=== PATIENT | male | born 1940 | race Caucasian/White ===

== ENCOUNTER 2016-10-30 09:43 | Outpatient (CLI) | payer MEDICARE | END 2016-10-30 09:44 | disposition home or self-care (01) | DX: R07.9 Chest pain, unspecified (principal) | CPT/HCPCS: 78452; 93017; A9500 ==

== ENCOUNTER 2016-12-28 09:42 | Day surgery (SDC) | payer MEDICARE ==
[2016-12-28] MEDS ORDERED: LACTATED RINGERS 1,000 ML IV ONE (10:00)
--- NOTE | 2016-12-28 10:16 | HISTORY & PHYSICAL EXAMINATION ---
HPI - History of Present Illness HPI Comment/Other: Visit Type: Follow-up Referring Provider: Dr. Street History of Present Illness: Patient is here for colonoscopy for history of colonic polyps Physical Exam General: well developed, well nourished, in no acute distress Lungs: clear bilaterally to A & P Heart: regular rate and rhythm, S1, S2 without murmurs, rubs, gallops, or clicks Abdomen: bowel sounds positive; abdomen soft and non-tender without masses, organomegaly, or hernias noted Pulses: pulses normal in all 4 extremities Extremities: no clubbing, cyanosis, edema, or deformity noted with normal full range of motion of all joints Cervical Nodes: no significant adenopathy Psych: alert and cooperative; normal mood and affect; normal attention span and concentration Medications were reviewed with the patient during this visit. Allergies were reviewed with the patient during this visit. Allergies: PENICILLIN V POTASSIUM (Critical) SULFA (Critical) Impression & Recommendations: Problem # 1: colon polyps Will proceed with colonoscopy PMH/PSH - Past Medical History Cardiovascular: positive: High cholesterol Respiratory: positive: None Endocrine/Autoimmune: positive: None GI: positive: Colon polyps : positive: None HEENT: positive: Chronic hearing loss, Other Psych: positive: None Musculoskeletal: positive: Osteoarthritis Derm: positive: None MRSA Hx?: No - Past Surgical History General: positive: Colonoscopy HEENT: positive: Tonsil/Adenoidectomy Social & Family Hx - Social History ETOH Use: Liquor Meds/Allgy - Home Medications Home Medications: Ambulatory Orders Medication Instructions Recorded Confirmed Simvastatin 1 tab PO DAILY 12/10/14 12/28/16 Aspirin [Aspirin EC] 81 mg PO DAILY 12/26/16 12/28/16 - Allergies Allergies/Adverse Reactions: Allergies Allergy/AdvReac Type Severity Reaction Status Date / Time Penicillins Allergy Respiratory Verified 12/10/14 06:54 Sulfa (Sulfonamide Allergy Unknown Verified 12/28/16 10:01 Antibiotics) Exam - Vital Signs Vital Signs: Vital Signs x48h Temp Pulse Resp BP Pulse Ox 12/28/16 09:50 36.7 C 67 16 118/68 98
[2016-12-28] MEDS ORDERED: fentaNYL 100 MCG/2 ML VIAL IVP ONE (11:39)
[2016-12-28] MEDS ORDERED: MIDAZOLAM 2 MG/2 ML VIAL IVP ONE (11:39)
[2016-12-28 12:49] VITALS: BP 120/66
== END 2016-12-28 09:43 | disposition home or self-care (01) ==
LOC: SDS 09:42
PROVIDERS: ATTEND Surgery
PROC: 0DBN8ZZ Excision of Sigmoid Colon, Via Natural or Artificial Opening Endoscopic (ICD-10-PCS; 2016-12-28)
PROC: 0DBK8ZZ Excision of Ascending Colon, Via Natural or Artificial Opening Endoscopic (ICD-10-PCS; 2016-12-28)
PROC: 0DBK8ZZ Excision of Ascending Colon, Via Natural or Artificial Opening Endoscopic (ICD-10-PCS; principal; 2016-12-28 10:45)
DX: Z12.11 Encounter for screening for malignant neoplasm of colon (principal); D12.2 Benign neoplasm of ascending colon; D12.3 Benign neoplasm of transverse colon; D12.5 Benign neoplasm of sigmoid colon; K64.8 Other hemorrhoids; E78.00 Pure hypercholesterolemia, unspecified
CPT/HCPCS: 45380; 45385; J7120; 88305

== ENCOUNTER 2019-12-09 11:12 | Emergency (ER) | payer MEDICARE ==
[2019-12-09 11:42] LABS: BASOPHILS % (AUTO) 0.5 %; EOSINOPHILS # (AUTO) 0.1 10^3/uL (0.0-0.7); EOSINOPHILS % (AUTO) 1.4 %; HGB - HEMOGLOBIN 14.1 g/dL (14.0-18.0); LYMPHOCYTES # (AUTO) 1.1 10^3/uL (1.5-3.5); LYMPHOCYTES % (AUTO) 29.9 %; MEAN CORPUSCULAR HEMOGLOBIN 32.1 pg (27.0-31.0); MEAN CORPUSCULAR HGB CONC 33.9 g/dL (32.0-36.0); MEAN CORPUSCULAR VOLUME 94.8 fL (80.0-94.0); MEAN PLATELET VOLUME 9.7 fL (7.4-11.4); MONOCYTES # (AUTO) 0.4 10^3/uL (0.0-1.0); MONOCYTES % (AUTO) 9.8 %; NEUTROPHILS # (AUTO) 2.1 10^3/uL (1.5-6.6); NEUTROPHILS % (AUTO) 58.1 %; PLT - PLATELET COUNT 157 10^3/uL (130-450); RED BLOOD COUNT 4.39 10^6/uL (4.70-6.10); RED CELL DISTRIBUTION WIDTH 13.2 % (12.0-15.0); WHITE BLOOD COUNT 3.7 x10^3/uL (4.8-10.8)
[2019-12-09 11:56] LABS: ALBUMIN 4.4 g/dL (3.2-5.5); BILIRUBIN,TOTAL 1.7 mg/dL (0.2-1.0); TOTAL PROTEIN 8.9 g/dL (6.7-8.2)
--- NOTE | 2019-12-09 11:56 | XRAY Report ---
Reason: Chest pain Procedure Date: 12/09/2019 Accession Number: [id number] / [id number] Procedure: XR - Chest 1 View X-Ray CPT Code: 02618 Final Report FULL RESULT: EXAM: CHEST RADIOGRAPHY EXAM DATE: 12/09/2019 11:45 AM. CLINICAL HISTORY: Chest pain. COMPARISON: XR CHEST PA AND LAT 10/26/2008 4:05 PM. TECHNIQUE: 1 view. FINDINGS: Lungs/Pleura: No focal opacities evident. No pleural effusion. No pneumothorax. Stable mild left hemidiaphragm elevation. Mediastinum: Within exam limitations, the cardiomediastinal contour is normal. Other: None. IMPRESSION: No acute abnormality of the chest or significant interval change. RADIA
[2019-12-09 13:31] VITALS: BP 154/90
--- NOTE | 2019-12-09 13:43 | ED Physician Documentation ---
History of Present Illness - Stated complaint Stated Complaint: DIZZY/WEAKNESS - Chief complaint Chief Complaint: General - History obtained from History obtained from: Patient - History of Present Illness Timing: How many days ago (3) - Additonal information Additional information: 78-year-old male has developed a feeling of lightheadedness and dizziness and if he gets up to do much he does not have his usual stamina. He states that usually he is able to go on a walk in a bicycle ride for about 45 minutes each day. He has been doing this but has some sensation of lightheadedness and dizziness when he stands up. He has felt a decrease in his physical stamina over the past year and feels that he might be getting old. He indicates that he exercises daily he does not usually drink much in the way of water. Review of Systems Constitutional: denies: Fever, Chills, Myalgias Eyes: denies: Decreased vision Ears: denies: Ear pain Nose: denies: Rhinorrhea / runny nose, Congestion Throat: denies: Sore throat Cardiac: denies: Chest pain / pressure, Palpitations Respiratory: denies: Dyspnea, Cough GI: denies: Abdominal Pain, Nausea, Vomiting : denies: Dysuria, Frequency Skin: denies: Rash Musculoskeletal: denies: Neck pain, Back pain, Extremity pain Neurologic: denies: Generalized weakness, Focal weakness, Numbness PD PAST MEDICAL HISTORY - Past Medical History Cardiovascular: High cholesterol Respiratory: None Neuro: None Endocrine/Autoimmune: None GI: Colon polyps : None HEENT: Chronic hearing loss, Other Psych: None Musculoskeletal: Osteoarthritis Derm: None - Past Surgical History General: Colonoscopy HEENT: Tonsil/Adenoidectomy - Present Medications Home Medications: Ambulatory Orders Medication Instructions Recorded Confirmed Simvastatin 1 tab PO DAILY 12/10/14 12/09/19 Aspirin [Aspirin EC] 81 mg PO DAILY 12/26/16 12/09/19 - Allergies Allergies/Adverse Reactions: Allergies Allergy/AdvReac Type Severity Reaction Status Date / Time Penicillins Allergy Respiratory Verified 12/09/19 11:24 Sulfa (Sulfonamide Allergy Unknown Verified 12/09/19 11:24 Antibiotics) - Social History Does the pt smoke?: No Smoking Status: Never smoker ETOH Use: Liquor Does the pt have substance abuse?: No - Immunizations Immunizations are current?: Yes - POLST Patient has POLST: No PD ED PE NORMAL - Vitals Vital signs reviewed: Yes (hpyertensive ) - General General: Alert and oriented X 3, No acute distress, Well developed/nourished - HEENT HEENT: Atraumatic, PERRL, EOMI, Ears normal, Pharynx benign, Dentition benign, Other (dry mucuos membranes no nystagmus) - Neck Neck: Supple, no meningeal sign, No bony TTP - Cardiac Cardiac: RRR, No murmur - Respiratory Respiratory: No respiratory distress, Clear bilaterally - Abdomen Abdomen: Soft, Non tender - Back Back: No CVA TTP, No spinal TTP - Derm Derm: Normal color, Warm and dry, No rash - Extremities Extremities: No deformity, No edema - Neuro Neuro: Alert and oriented X 3, slab grinder 2-12 intact, No motor deficit, No sensory deficit, Normal speech Eye Opening: Spontaneous Motor: Obeys Commands Verbal: Oriented GCS Score: 15 - Psych Psych: Normal mood, Normal affect Results - Vitals Vitals: Vital Signs - 24 hr 12/09/19 12/09/19 11:19 13:29 Temperature 36.2 C L Heart Rate 62 77 Respiratory 16 Rate Blood Pressure 152/75 H 154/90 H O2 Saturation 99 100 Oxygen O2 Source Room air - EKG (time done) 1127 Rate: Rate (enter#) (68) Rhythm: NSR, LAE Compare to prior EKG: Old EKG unavailable Computer interpretation: Agree with computer - Labs Labs: Laboratory Tests 12/09/19 12/09/19 12/09/19 11:35 11:35 11:35 WBC 3.7 L RBC 4.39 L Hgb 14.1 Hct 41.6 L MCV 94.8 H MCH 32.1 H MCHC 33.9 RDW 13.2 Plt Count 157 MPV 9.7 Neut # (Auto) 2.1 Lymph # (Auto) 1.1 L [place] # (Auto) 0.4 Eos # (Auto) 0.1 Baso # (Auto) 0.0 Absolute Nucleated RBC 0.00 Nucleated RBC % 0.0 Sodium 134 L Potassium 4.0 Chloride 100 L Carbon Dioxide 27 Anion Gap 7.0 BUN 15 Creatinine 1.0 Estimated GFR (MDRD) 72 L Glucose 113 H Calcium 9.0 Total Bilirubin 1.7 H AST 24 ALT 12 Alkaline Phosphatase 76 Troponin I High Sens 3.0 Total Protein 8.9 H Albumin 4.4 Globulin 4.5 H Albumin/Globulin Ratio 1.0 Lipase 31 Procedures - IVC sono (time) 1315 Bedside IVC sono: IVC measures (cm) (0.87), IVC collapsed c insp (cm) (complete), Dehydration (est 2 liter deficit.) PD MEDICAL DECISION MAKING - ED course Complexity details: reviewed results, re-evaluated patient, considered differential, d/w patient ED course: 78-year-old male presents to the emergency department with lightheadedness and dizziness he has no abnormality to the TMs bilaterally has no nystagmus he is found to be dehydrated on interrogation the inferior vena cava with an estimated deficit of as much as 2 L. I discussed the findings with the patient and he is elected to hydrate at home. I believe this is entirely reasonable the patient does appear to be a healthy 78-year-old specimen and the expectation is for complete recovery with addition of extra oral hydration. Departure - Departure Disposition: 01 Home, Self Care Clinical Impression: Dehydration Condition: Stable Instructions: ED Dehydration Follow-Up: Jarad Zhang MD [Primary Care Provider] - Discharge Date/Time: 12/09/19 13:45
== END 2019-12-09 13:45 | disposition home or self-care (01) ==
LOC: ED 11:12
DX: E86.0 Dehydration (principal); Z79.82 Long term (current) use of aspirin
CPT/HCPCS: 36415; 71045; 80053; 83690; 84484; 85025; 93005; 99284

== ENCOUNTER 2021-02-28 10:49 | Outpatient (CLI) | payer MEDICARE ==
--- NOTE | 2021-02-28 12:53 | MRI Report ---
PROCEDURE: Lumbar Spine W/O INDICATIONS: SCIATICA TECHNIQUE: Noncontrast sagittal T1 spin echo and T2 fast echo, sagittal STIR, axial T1 and T2 fast spin echo thr ough the lumbar spine. In cases with scoliosis, additional coronal T2 fast spin echo may be performe d. COMPARISON: None. FINDINGS: Image quality: Excellent. Alignment and Curvature: Approximately 9 mm anterolisthesis of L5 on S1 with bilateral L5 pars defect s. Otherwise normal alignment. Vertebral body heights maintained. Bone Marrow: No suspicious focal marrow signal abnormality. Mild discogenic marrow edema at the oppos ing L5-S1 endplates. Spinal Cord: Conus medullaris terminates at the normal level. Visualized cord demonstrates normal s ignal and size. Regional Soft Tissues: Prevertebral and paraspinous soft tissues are within normal limits. T12-L1: No spinal canal or neural foraminal stenosis. L1-L2: Disc bulge flattens the ventral thecal sac. No mass effect upon the traversing L2 nerve jered ts. No neural foraminal stenosis. Mild facet hypertrophy. L2-L3: Moderate spinal canal stenosis due to diffuse disc bulge and a superimposed broad-based pro trusion with contribution from facet hypertrophy and buckling of the ligamentum flavum. There is near complete effacement of CSF within the thecal sac and crowding of the traversing nerve roots. Foramin al components of the disc bulge and facet hypertrophy combine to produce mild bilateral neural forami nal stenosis. L3-L4: Moderate spinal canal stenosis due to a combination of diffuse disc bulge and a superimposed broad-based protrusion with contribution from facet hypertrophy and buckling of the ligamentum flavu m. There is near complete effacement of CSF within the thecal sac and crowding of the traversing nerv e roots. Foraminal components of the disc bulge and facet hypertrophy contribute to moderate right an d mild left neural foraminal stenosis. L4-L5: Diffuse disc bulge with a superimposed disc extrusion and mild inferior migration of disc ma terial. There is displacement of the bilateral descending L5 nerve roots within both subarticular zon es, left greater than right. Foraminal components of the disc bulge contribute to moderate bilateral neural foraminal stenosis. L5-S1: Anterolisthesis of L5 on S1 produces a pseudobulge which combines with a true disc bulge to displace the descending S1 nerve roots within both subarticular zones. There is severe bilateral neur al foraminal stenosis. IMPRESSION: Severe bilateral neural foraminal narrowing at L5-S1. Correlate for any corresponding L5 related to h er symptoms. This is due primarily to neural foraminal height loss and grade 1 spondylolisthesis of L 5 on S1. Moderate spinal canal stenosis at L4-L5 and L3-L4. Moderate neural foraminal narrowing bilaterally at L4-L5, and on the right at L3-L4. Reviewed by: Jeffrey Odom MD on 02/28/2021 12:51 PM PDT Approved by: Jeffrey Odom MD on 02/28/2021 12:51 PM PDT Station ID: [id number]
== END 2021-02-28 10:50 | disposition home or self-care (01) ==
LOC: DI 10:49
PROVIDERS: ATTEND Internal Medicine
DX: M43.17 Spondylolisthesis, lumbosacral region (principal); M48.07 Spinal stenosis, lumbosacral region; M48.061 Spinal stenosis, lumbar region without neurogenic claudication; M51.26 Other intervertebral disc displacement, lumbar region; M51.36 Other intervertebral disc degeneration, lumbar region; M51.37 Other intervertebral disc degeneration, lumbosacral region; M47.816 Spondylosis without myelopathy or radiculopathy, lumbar region; M47.817 Spondylosis without myelopathy or radiculopathy, lumbosacral region

== ENCOUNTER 2021-04-22 12:49 | Outpatient (CLI) | payer MEDICARE | END 2021-04-22 12:50 | disposition home or self-care (01) | LOC: COV 12:49 | PROVIDERS: ATTEND Internal Medicine Cardiovascular Disease | DX: Z01.812 Encounter for preprocedural laboratory examination (principal); Z20.822 Contact with and (suspected) exposure to COVID-19 ==

== ENCOUNTER 2021-11-14 15:23 | Outpatient (CLI) | payer MEDICARE ==
[2021-11-14 15:47] LABS: CREATININE 0.9 mg/dL (0.6-1.2)
== END 2021-11-14 15:24 | disposition home or self-care (01) ==
LOC: LAB 15:23
PROVIDERS: ATTEND Radiology Radiation Oncology
DX: C44.02 Squamous cell carcinoma of skin of lip (principal)
CPT/HCPCS: 36415; 82565

== ENCOUNTER 2022-04-28 08:00 | Outpatient (CLI) | payer MEDICARE ==
[2022-04-28 16:31] LABS: BASOPHILS % (AUTO) 0.6 %; EOSINOPHILS # (AUTO) 0.1 10^3/uL (0.0-0.7); EOSINOPHILS % (AUTO) 1.9 %; HCT - HEMATOCRIT 37.8 % (42.0-52.0); LYMPHOCYTES # (AUTO) 1.2 10^3/uL (1.5-3.5); LYMPHOCYTES % (AUTO) 37.6 %; MEAN CORPUSCULAR HEMOGLOBIN 32.7 pg (27.0-31.0); MEAN CORPUSCULAR HGB CONC 34.4 g/dL (32.0-36.0); MEAN PLATELET VOLUME 10.3 fL (7.4-11.4); MONOCYTES # (AUTO) 0.4 10^3/uL (0.0-1.0); MONOCYTES % (AUTO) 11.8 %; NEUTROPHILS # (AUTO) 1.5 10^3/uL (1.5-6.6); NEUTROPHILS % (AUTO) 47.8 %; PLT - PLATELET COUNT 173 10^3/uL (130-450); RED BLOOD COUNT 3.98 10^6/uL (4.70-6.10); RED CELL DISTRIBUTION WIDTH 13.2 % (12.0-15.0); WHITE BLOOD COUNT 3.2 x10^3/uL (4.8-10.8)
[2022-04-28 16:50] LABS: ALBUMIN 4.1 g/dL (3.2-5.5); ALBUMIN/GLOBULIN RATIO 0.9 (1.0-2.2); ALKALINE PHOSPHATASE 64 IU/L (42-121); ALT ALANINE AMINOTRANSFERASE 10 IU/L (10-60); AST ASPARTATE AMINOTRANSFERASE 21 IU/L (10-42); BILIRUBIN,TOTAL 1.5 mg/dL (0.2-1.0); BUN - BLOOD UREA NITROGEN 14 mg/dL (6-20); CARBON DIOXIDE - CO2 27 mmol/L (21-32); CHLORIDE 101 mmol/L (101-111); CHOL/HDL RATIO 3.6 (<5.0); CHOLESTEROL 196 mg/dL; CK- CREATINE KINASE 115 IU/L (22-269); GFR - MDRD 72 (>89); GLUCOSE 97 mg/dL (70-100); HDL CHOLESTEROL 54 mg/dL; LDL CHOLESTEROL,CALCULATED 129 mg/dL; LDL/HDL RATIO 2.4 (<3.6); POTASSIUM 4.5 mmol/L (3.5-5.0); SODIUM 133 mmol/L (135-145); TOTAL PROTEIN 8.5 g/dL (6.7-8.2); TRIGLYCERIDES 65 mg/dL; VLDL CHOLESTEROL 13 mg/dL
[2022-04-28 16:54] LABS: PSA TOTAL 0.62 ng/mL (0.000-2.000)
[2022-04-28 21:45] LABS: ESTIMATED AVERAGE GLUCOSE 111 mg/dL (70-100); HEMOGLOBIN A1c% 5.5 % (4.27-6.07)
== END 2022-04-28 23:59 | disposition home or self-care (01) ==
LOC: LAB.R 08:00
PROVIDERS: ATTEND Internal Medicine
DX: Z00.00 Encounter for general adult medical examination without abnormal findings (principal); U07.1 COVID-19; C44.91 Basal cell carcinoma of skin, unspecified; H91.90 Unspecified hearing loss, unspecified ear; Z86.010 Personal history of colon polyps; R73.9 Hyperglycemia, unspecified; E78.5 Hyperlipidemia, unspecified; M19.90 Unspecified osteoarthritis, unspecified site; Z12.5 Encounter for screening for malignant neoplasm of prostate; M25.519 Pain in unspecified shoulder; C80.1 Malignant (primary) neoplasm, unspecified
CPT/HCPCS: 80053; 80061; 82550; 83036; 83721; 84153; 84443; 85025

== ENCOUNTER 2022-05-25 08:00 | Outpatient (CLI) | payer MEDICARE ==
[2022-05-25 17:28] LABS: FOLATE 15.49 ng/mL (5.90 - >24.8)
== END 2022-05-25 23:59 | disposition home or self-care (01) ==
LOC: LAB.R 08:00
PROVIDERS: ATTEND Internal Medicine
DX: D64.9 Anemia, unspecified (principal); D75.89 Other specified diseases of blood and blood-forming organs
CPT/HCPCS: 36415; 82607; 82746

== ENCOUNTER 2022-07-05 09:26 | Day surgery (SDC) | payer MEDICARE ==
[2022-07-05] MEDS ORDERED: LACTATED RINGERS 1,000 ML IV ONE (09:57)
[2022-07-05] MEDS ORDERED: PROPOFOL 500 MG/50 ML 500 MG/50 ML VIAL ONE (11:02)
--- NOTE | 2022-07-05 11:16 | ANESTHESIA ---
Pre-Anesthesia VS, & Labs - Diagnosis screening exam, history of polyps - Procedure colonoscopy Vital Signs: Temp Pulse Resp BP Pulse Ox O2 Flow Rate 36.3 C L 85 22 142/89 H 98 07/05/22 09:58 07/05/22 09:58 07/05/22 09:58 07/05/22 09:58 07/05/22 09:58 Height: 5 ft 8 in Weight (kg): 80 kg Body Mass Index: 26.8 BMI Classification: Overweight - NPO >8 hours Home Medications and Allergies Simvastatin 1 tab PO DAILY 12/10/14 Allergies/Adverse Reactions: Allergies Allergy/AdvReac Type Severity Reaction Status Date / Time Penicillins Allergy Respiratory Verified 07/04/22 13:16 Sulfa (Sulfonamide Allergy Unknown Verified 07/04/22 13:16 Antibiotics) niacin AdvReac Unknown Verified 07/05/22 09:56 Anes History & Medical History - Anesthetic History Anesthesia Complications: reports: No previous complications - Medical History Cardiovascular: reports: High cholesterol Pulmonary: reports: None Gastrointestinal: reports: Colon polyps Urinary: reports: None Neuro: reports: None Musculoskeletal: reports: Osteoarthritis Endocrine/Autoimmune: reports: None Blood Disorders: reports: None Skin: reports: None Smoking Status: Never smoker Psychosocial: reports: Alcohol (daily) - Surgical History General: reports: Colonoscopy Eyes Ears Nose Throat (EENT): reports: Cataracts, Tonsil/Adenoidectomy Exam General: Alert, Oriented x3, Cooperative, No acute distress Dental: WNL Mouth Openin Fingerbreadth Neck Mobility: Normal Mallampati classification: II Thyromental Distance: 4-6 cm Mental/Cognitive Status: Alert/Oriented X3, Normal for patient Plan Anesthesia Type: General, Total IV Consent for Procedure(s) Verified and Reviewed: Yes Code Status: Attempt Resuscitation ASA classification: 2-Mild systemic disease Is this case an emergency?: No
[2022-07-05] MEDS ORDERED: LACTATED RINGERS 300 ML IV ONE (12:34)
[2022-07-05 12:46] VITALS: BP 133/81
--- NOTE | 2022-07-05 14:26 | ANESTHESIA POST OP EVALUATION ---
Anesthesia Post Eval - Post Anesthesia Eval Vitals: Last Vital Signs Temp 37 C 07/05/22 12:40 Pulse 62 07/05/22 12:40 Resp 16 07/05/22 12:40 BP 133/81 H 07/05/22 12:40 Pulse Ox 96 07/05/22 12:40 O2 Flow Rate CV Function Including HR & BP: Stable Pain Control: Satisfactory Nausea & Vomiting: Negative Mental Status: Baseline Respiratory Status: Airway Patent Hydration Status: Satisfactory Anesthesia Complications: None
== END 2022-07-05 09:27 | disposition home or self-care (01) ==
LOC: SDS 09:26
PROVIDERS: ATTEND Surgery
PROC: 0DBL8ZZ Excision of Transverse Colon, Via Natural or Artificial Opening Endoscopic (ICD-10-PCS; 2022-07-05)
PROC: 0DBP8ZZ Excision of Rectum, Via Natural or Artificial Opening Endoscopic (ICD-10-PCS; principal; 2022-07-05 10:30)
DX: Z12.11 Encounter for screening for malignant neoplasm of colon (principal); D12.3 Benign neoplasm of transverse colon; D12.8 Benign neoplasm of rectum; K64.8 Other hemorrhoids; Z80.0 Family history of malignant neoplasm of digestive organs; Z87.891 Personal history of nicotine dependence; I25.10 Atherosclerotic heart disease of native coronary artery without angina pectoris
CPT/HCPCS: 45381; 45385; J7120

== ENCOUNTER 2022-09-01 12:05 | Outpatient (CLI) | payer MEDICARE ==
--- NOTE | 2022-09-01 12:40 | XRAY Report ---
PROCEDURE: Chest 2 View X-Ray INDICATIONS: ACUTE COUGH TECHNIQUE: 2 views of the chest were acquired. COMPARISON: 12/09/2019 FINDINGS: Surgical changes and devices: None. Lungs and pleura: No pleural effusions or pneumothorax. Lungs are clear. Mediastinum: Mediastinal contours are normal. Heart size is normal. Bones and chest wall: No suspicious bony abnormalities. Soft tissues appear unremarkable. IMPRESSION: No evidence acute pulmonary process. Reviewed by: Jesus Contreras MD on 09/01/2022 12:39 PM PST Approved by: Jesus Contreras MD on 09/01/2022 12:39 PM PST Station ID: [id number]
== END 2022-09-01 12:06 | disposition home or self-care (01) ==
LOC: DI 12:05
PROVIDERS: ATTEND Internal Medicine
DX: R05.1 Acute cough (principal)

== ENCOUNTER 2022-12-30 07:34 | Outpatient (CLI) | payer MEDICARE | END 2022-12-30 07:35 | disposition critical access hospital (66) | LOC: EMS 07:34 | DX: R42 Dizziness and giddiness (principal); R63.8 Other symptoms and signs concerning food and fluid intake | CPT/HCPCS: A0425; A0427 ==

== ENCOUNTER 2022-12-30 07:42 | Emergency (ER) | payer MEDICARE ==
[2022-12-30 07:53] VITALS: BP 172/83
[2022-12-30] MEDS ORDERED: MECLIZINE 12.5 MG TABLET PO STA (08:07)
[2022-12-30] MEDS ORDERED: SODIUM CHLORIDE 0.9% 1,000 ML IV STA (08:07)
--- NOTE | 2022-12-30 08:08 | ED Physician Documentation ---
PD HPI HEENT - Stated complaint Stated Complaint: DIZZY - Chief complaint Chief Complaint: Neuro - History obtained from History obtained from: Patient, EMS - History of Present Illness Timing - onset: Yesterday Timing - duration: Days (2) Timing - details: Abrupt onset, Still present, Intermittant Location: Other (vertigo with getting up from bed and then with head movement. No persistent vertigo - improves with holding still. No other neuro symptoms such as vision change, confusion, trobule speaking, focal weakness, ataxia, nor incoordination of hand use.) Improves: Medication Associated symptoms: Congestion (he has had some sinus pressure, congestion, and mild sore throat for few days. Taking Claritin twice daily for the past few days.). No: Fever, Facial swelling, Headache Similar symptoms before: No diagnosis (has had mild vertigo with position change at times in the past.) Recently seen: Not recently seen Review of Systems Constitutional: denies: Fever, Chills Ears: denies: Ear pain, Tinnitus/ringing Nose: reports: Rhinorrhea / runny nose, Congestion, Sinus pressure / pain Throat: reports: Sore throat (yesterday) Cardiac: denies: Chest pain / pressure Respiratory: denies: Dyspnea, Cough GI: reports: Nausea. denies: Abdominal Pain, Vomiting, Constipation Skin: denies: Rash, Lesions Musculoskeletal: denies: Neck pain, Back pain Neurologic: denies: Confused, Altered mental status, Headache, Head injury PD PAST MEDICAL HISTORY - Past Medical History Past Medical History: Yes Cardiovascular: High cholesterol Respiratory: None Neuro: None Endocrine/Autoimmune: None GI: Colon polyps : None HEENT: Chronic hearing loss, Other Psych: None Musculoskeletal: Osteoarthritis Derm: None - Past Surgical History General: Colonoscopy HEENT: Cataracts, Tonsil/Adenoidectomy - Present Medications Home Medications: Ambulatory Orders Medication Instructions Recorded Confirmed Simvastatin 1 tab PO DAILY 12/10/14 07/04/22 Fluticasone [Flonase] 1 sprays SUNSHINE BID 14 Days #16 gm 12/30/22 Meclizine HCl [Motion Sickness] 25 mg PO Q6H PRN #30 tablet 12/30/22 - Allergies Allergies/Adverse Reactions: Allergies Allergy/AdvReac Type Severity Reaction Status Date / Time Penicillins Allergy Respiratory Verified 12/30/22 07:53 Sulfa (Sulfonamide Allergy Unknown Verified 12/30/22 07:53 Antibiotics) niacin AdvReac Unknown Verified 12/30/22 07:53 - Social History Does the pt smoke?: No Smoking Status: Never smoker Does the pt have substance abuse?: No - Immunizations Immunizations are current?: Yes - POLST Patient has POLST: No PD ED PE NORMAL - Vitals Vital signs reviewed: Yes - General General: Alert and oriented X 3, No acute distress, Well developed/nourished - HEENT HEENT: PERRL, EOMI, Ears normal, Moist mucous membranes, Pharynx benign - Neck Neck: Supple, no meningeal sign, No adenopathy - Cardiac Cardiac: RRR, No murmur - Respiratory Respiratory: No respiratory distress, Clear bilaterally - Derm Derm: Normal color, Warm and dry - Neuro Neuro: Alert and oriented X 3, forging die sinker 2-12 intact, No motor deficit, No sensory deficit, Normal speech Results - Vitals Vitals: Vital Signs - 24 hr 12/30/22 07:49 Temperature 36.8 C Heart Rate 66 Respiratory 14 Rate Blood Pressure 172/83 H O2 Saturation 100 Oxygen O2 Source Room air - Labs Labs: Laboratory Tests 12/30/22 12/30/22 08:20 08:20 WBC 3.2 L RBC 3.79 L Hgb 12.3 L Hct 36.3 L MCV 95.8 H MCH 32.5 H MCHC 33.9 RDW 13.1 Plt Count 148 MPV 9.3 Neut # (Auto) 1.6 Lymph # (Auto) 1.1 L [place] # (Auto) 0.4 Eos # (Auto) 0.1 Baso # (Auto) 0.0 Absolute Nucleated RBC 0.00 Nucleated RBC % 0.0 Sodium 131 L Potassium 4.5 Chloride 102 Carbon Dioxide 25 Anion Gap 4.0 L BUN 14 Creatinine 1.0 Estimated GFR (MDRD) 72 L Glucose 107 H Calcium 8.5 Magnesium 2.2 Total Bilirubin 1.3 H AST 21 ALT < 10 L Alkaline Phosphatase 59 Total Protein 8.5 H Albumin 3.6 Globulin 4.9 H Albumin/Globulin Ratio 0.7 L Lipase 29 PD Medical Decision Making - ED course Complexity details: considered differential (definite positional vertigo with head movement and dsmpens/stops with holding still. No other symptoms. Had preceding few days of sinus/nasal congestion. ), d/w patient ED course: not having vertigo right now and can move head reasonably well. Not able to assess skew/direction of nystagmus, etc. Departure - Departure Disposition: 01 Home, Self Care Clinical Impression: Positional vertigo Condition: Stable Record reviewed to determine appropriate education?: Yes Instructions: ED Vertigo Unspecified Follow-Up: Bertha Street MD [Primary Care Provider] - Prescriptions: Fluticasone [Flonase] 1 sprays SUNSHINE BID 14 Days #16 gm Meclizine HCl [Motion Sickness] 25 mg PO Q6H PRN #30 tablet PRN Reason: Vertigo Comments: Your symptoms sound like positional vertigo or some inflammation of the inner ear ear causing the spinning with movement. There could be some element of und er hydration but I think it relates more to the congestion you had recently and concurrent pressure in the inner ear as well. We gave a dose of an anti-inflammatory steroid here orally and I would suggest fluticasone nasal spray twice daily for the next week or so and then once daily for another week. Use the Claritin twice daily over the next week. That can help with some of the congestion. You can add meclizine every 6-8 hours if needed for vertigo itself. Moves slow and easy over the next few days. Follow-up if not completely resolved over the next few days. The symptoms will probably come and go a little bit with quick movements in the short-term. It typically will be improved by a week or so. I sent your prescriptions to your preferred pharmacy. Your basic chemistry panel of electrolytes, blood sugar, kidney function are normal with a just slightly low sodium level.. Your blood count shows some mild anemia but not significantly low. Follow-up with your primary care. Discharge Date/Time: 12/30/22 09:04
[2022-12-30] MEDS ORDERED: DEXAMETHASONE 10 MG/ML VIAL IVP STA (08:15)
[2022-12-30 08:24] LABS: BASOPHILS % (AUTO) 0.6 %; EOSINOPHILS # (AUTO) 0.1 10^3/uL (0.0-0.7); EOSINOPHILS % (AUTO) 2.2 %; HCT - HEMATOCRIT 36.3 % (42.0-52.0); HGB - HEMOGLOBIN 12.3 g/dL (14.0-18.0); LYMPHOCYTES # (AUTO) 1.1 10^3/uL (1.5-3.5); LYMPHOCYTES % (AUTO) 34.3 %; MEAN CORPUSCULAR HEMOGLOBIN 32.5 pg (27.0-31.0); MEAN CORPUSCULAR HGB CONC 33.9 g/dL (32.0-36.0); MEAN CORPUSCULAR VOLUME 95.8 fL (80.0-94.0); MEAN PLATELET VOLUME 9.3 fL (7.4-11.4); MONOCYTES # (AUTO) 0.4 10^3/uL (0.0-1.0); MONOCYTES % (AUTO) 11.1 %; NEUTROPHILS # (AUTO) 1.6 10^3/uL (1.5-6.6); NEUTROPHILS % (AUTO) 51.8 %; PLT - PLATELET COUNT 148 10^3/uL (130-450); RED BLOOD COUNT 3.79 10^6/uL (4.70-6.10); RED CELL DISTRIBUTION WIDTH 13.1 % (12.0-15.0); WHITE BLOOD COUNT 3.2 x10^3/uL (4.8-10.8)
[2022-12-30 08:38] LABS: ALBUMIN 3.6 g/dL (3.2-5.5); ALBUMIN/GLOBULIN RATIO 0.7 (1.0-2.2); ALKALINE PHOSPHATASE 59 IU/L (42-121); ALT ALANINE AMINOTRANSFERASE < 10 IU/L (10-60); AST ASPARTATE AMINOTRANSFERASE 21 IU/L (10-42); BILIRUBIN,TOTAL 1.3 mg/dL (0.2-1.0); BUN - BLOOD UREA NITROGEN 14 mg/dL (6-20); CALCIUM 8.5 mg/dL (8.5-10.3); CARBON DIOXIDE - CO2 25 mmol/L (21-32); CHLORIDE 102 mmol/L (101-111); GFR - MDRD 72 (>89); GLUCOSE 107 mg/dL (70-100); LIPASE 29 U/L (22-51); MAGNESIUM 2.2 mg/dL (1.7-2.8); POTASSIUM 4.5 mmol/L (3.5-5.0); SODIUM 131 mmol/L (135-145); TOTAL PROTEIN 8.5 g/dL (6.7-8.2)
== END 2022-12-30 09:04 | disposition home or self-care (01) ==
LOC: EDUNIT# → ED 07:42
DX: H81.10 Benign paroxysmal vertigo, unspecified ear (principal); E78.00 Pure hypercholesterolemia, unspecified; Z79.899 Other long term (current) drug therapy
CPT/HCPCS: 36415; 80053; 83690; 83735; 85025; 93005; 96374; 99283; A9270

== ENCOUNTER 2023-11-15 07:20 | Outpatient (CLI) | payer MEDICARE ==
[2023-11-15 08:12] LABS: PARTIAL THROMBOPLASTIN TIME 27.1 secs (24.9-33.3)
[2023-11-15 08:16] LABS: INR 1.1 (0.8-1.2); PT - PROTHROMBIN TIME 11.8 secs (9.9-12.6)
[2023-11-15] MEDS ORDERED: fentaNYL 100 MCG/2 ML VIAL ONE (08:16)
[2023-11-15] MEDS ORDERED: ONDANSETRON 4 MG/2 ML VIAL ONE (08:16)
[2023-11-15] MEDS ORDERED: LIDOCAINE-MPF 1% 5 ML VIAL ONE (08:17)
[2023-11-15] MEDS ORDERED: MIDAZOLAM 2 MG/2 ML VIAL ONE (08:17)
[2023-11-15] MEDS: LIDOCAINE-MPF 1% 5 ML VIAL SUBQ STA (10:21)
[2023-11-15] MEDS ORDERED: ACETAMINOPHEN 325 MG TABLET PO ONE (11:00)
[2023-11-15] MEDS: ACETAMINOPHEN 325 MG TABLET PO SCH (11:15)
[2023-11-15 11:47] VITALS: BP 138/71; O2SAT 99
--- NOTE | 2023-11-16 08:42 | CT Report ---
PROCEDURE: Bone Marrow Biopsy w/Aspiratio Sedation analgesia for 0 minutes. INDICATIONS: ANEMIA TECHNIQUE: The indications, alternatives, benefits, risks, and possible complications of the procedure were comm unicated to the patient. Informed written consent from the patient was obtained and placed in the art. Continuous EKG and hemodynamic monitoring was started by trained personnel. For radiation dose reduction, the following was used: automated exposure control, adjustment of mA and/or kV according to patient size. The patient was brought to the CT suite and process owner spiral CT imaging was performed with localization g rid. The appropriate site for percutaneous access to the biopsy target was marked, was prepped and d raped sterilely, and was infused with local anaesthesia. Under CT guidance, a core biopsy trocar and needle set was advanced to the biopsy target, and specimen(s) were obtained. The trocar and needle were then removed, and the patient was sent for post-procedure monitoring. COMPARISON: None. FINDINGS: Biopsy site: Right iliac bone Needle: Telflex 12 gauge biopsy needle with introducer trocar. Number of passes: Aspiration and core Medications: 1% lidocaine for local anaesthesia. Complications: None. IMPRESSION: Successful CT-guided biopsy of bone marrow. Reviewed by: Andrea Goldman MD on 11/16/2023 8:41 AM PDT Approved by: Andrea Goldman MD on 11/16/2023 8:41 AM PDT Station ID: [id number]
== END 2023-11-15 07:21 | disposition home or self-care (01) ==
LOC: DI 07:20
PROVIDERS: ATTEND Internal Medicine Hematology & Oncology
DX: D47.2 Monoclonal gammopathy (principal); D64.9 Anemia, unspecified; C90.30 Solitary plasmacytoma not having achieved remission
CPT/HCPCS: 36415; 38222; 77012; 85610; 85730; A9270